=== PATIENT | female | born 1955 | race Caucasian/White ===

== ENCOUNTER 2019-02-27 16:52 | Emergency (ER) | payer BC ==
[2019-02-27] MEDS ORDERED: DIAZEPAM 2 MG TABLET ONE (17:12)
[2019-02-27 17:30] LABS: Absolute Lymphocytes (CBC) 1.1 K/uL (0.7-4.9); Basophils % 0.8 % (0-1.3); Hematocrit 38.4 % (36.0-45.0); Lymphocytes % 30.3 % (15.3-44.8); MPV 6.9 fL (7.6-11.3); RBC Red Blood Cell Count 3.88 M/uL (3.86-4.86)
[2019-02-27 17:48] LABS: BUN Blood Urea Nitrogen 14 mg/dL (7-18); Bicarbonate 31 mmol/L (21-32); Glucose Level 119 mg/dL (74-106); Potassium 4.1 mmol/L (3.5-5.1); Sodium Level 132 mmol/L (136-145); Troponin (Emerg Dept Use Only) < 0.02 ng/mL (0.0-0.045)
--- NOTE | 2019-02-27 18:04 | EDPHYS ---
Physician Documentation [facility] Name: Kristina Erickson Age: 63 yrs Sex: Female : 1955 Arrival Date: 02/27/2019 Time: 16:53 Bed 6 Private MD: ED Physician Julio César Tirado HPI: 02/27 17:09 This 63 yrs old Female presents to ER via Ambulatory with complaints of rn Anxiety, Elevated Heart Rate. 17:09 The patient presents with a history of heart racing. Context: The symptoms occur with rn anxiety. Onset: The symptoms/episode began/occurred 1 week(s) ago. Duration: The patient or guardian reports multiple episodes, that wax and wane. Modifying factors: The symptoms are aggravated by anxiety, The symptoms are alleviated by nothing. Severity of symptoms: At their worst the symptoms were moderate in the emergency department the symptoms are unchanged. The patient has experienced similar episodes in the past. The patient has not recently seen a physician. reports came with family from [place], here visiting at [place], reports a week prior to coming had increased anxiety, feels heart racing and anxious. No chest pain/sob/abd pain/vomiting/diarrhea. Reports feels like her anxiety just worse. No medication changes recently. . Historical: - Allergies: 16:58 No Known Allergies; la1 - PMHx: 16:58 Hypertension; Anxiety; la1 - Immunization history:: Adult Immunizations up to date. - Social history:: Smoking status: Patient/guardian denies using tobacco. - Ebola Screening: : No symptoms or risks identified at this time. - Family history:: not pertinent. - Hospitalizations: : No recent hospitalization is reported. ROS: 17:09 Constitutional: Negative for fever, chills, and weight loss, Eyes: Negative for injury, rn pain, redness, and discharge, Cardiovascular: Negative for chest pain, and edema, Respiratory: Negative for shortness of breath, cough, wheezing, and pleuritic chest pain, Abdomen/GI: Negative for abdominal pain, nausea, vomiting, diarrhea, and constipation, MS/Extremity: Negative for injury and deformity, Skin: Negative for injury, rash, and discoloration, Neuro: Negative for headache, weakness, numbness, tingling, and seizure, Psych: Negative for suicide ideation, homicidal ideation Exam: 17:09 Constitutional: This is a well developed, well nourished patient who is awake, alert, rn and in no acute distress.Ambulatory to room without difficulty or assistance. Head/Face: Normocephalic, atraumatic. ENT: MMM Cardiovascular: Regular rate and rhythm. No pulse deficits. Respiratory: Lungs have equal breath sounds bilaterally, clear to auscultation and percussion. No increased work of breathing, no retractions or nasal flaring. Abdomen/GI: soft, non-tender MS/ Extremity: Pulses equal, no cyanosis. Neurovascular intact. Full, normal range of motion. Equal circumference. Neuro: Awake and alert, GCS 15, oriented to person, place, time, and situation. Cranial nerves II-XII grossly intact. Motor strength 5/5 in all extremities. Sensory grossly intact. Cerebellar exam normal. Normal gait. 17:19 ECG was reviewed by the Attending Physician. rn Vital Signs: 16:58 BP 143 / 77; Pulse 86; Resp 16; Temp 97.4; Pulse Ox 100% on R/A; Weight 63.5 kg; Height la1 5 ft. 6 in. (167.64 cm); 17:49 BP 109 / 54; Pulse 70; Resp 18 S; Pulse Ox 100% on R/A; jl7 16:58 Body Mass Index 22.60 (63.50 kg, 167.64 cm) la1 MDM: 17:01 Patient medically screened. rn 18:02 Differential diagnosis: arrythmia, dehydration, stress disorder, anxiety. Data rn reviewed: vital signs, nurses notes, lab test result(s), EKG, and as a result, I will discharge patient. Counseling: I had a detailed discussion with the patient and/or guardian regarding: the historical points, exam findings, and any diagnostic results supporting the discharge/admit diagnosis, lab results, the need for outpatient follow up, to return to the emergency department if symptoms worsen or persist or if there are any questions or concerns that arise at home. Response to treatment: the patient's symptoms have markedly improved after treatment, and as a result, I will discharge patient. Special discussion: I discussed with the patient/guardian in detail that at this point there is no indication for admission to the hospital. It is understood, however, that if the symptoms persist or worsen the patient needs to return immediately for re-evaluation. Based on the history and exam findings, there is no indication for further emergent testing or inpatient evaluation. I discussed with the patient/guardian the need to see the psychiatrist for further evaluation of the symptoms. 02/27 17:08 Order name: CBC with Diff; Complete Time: 17:58 rn 02/27 17:08 Order name: Basic Metabolic Panel; Complete Time: 17:58 rn 02/27 17:08 Order name: TSH; Complete Time: 17:58 rn 02/27 17:08 Order name: T4 Free; Complete Time: 17:58 rn 02/27 17:08 Order name: Troponin (emerg Dept Use Only); Complete Time: 17:58 rn 02/27 17:08 Order name: IV Start; Complete Time: 17:14 rn 02/27 17:08 Order name: EKG; Complete Time: 17:09 rn 02/27 17:08 Order name: EKG - Nurse/Tech; Complete Time: 17:14 rn EC:19 Rate is 78 beats/min. Rhythm is regular. QRS Riner is Normal. CO interval is normal. QRS rn interval is normal. QT interval is normal. No Q waves. T waves are Normal. No ST changes noted. Clinical impression: NSR w/ Non-specific ST/T Changes. Interpreted by me. Reviewed by me. Administered Medications: 17:14 Drug: Valium 2 mg Route: PO; mg2 17:45 Follow up: Response: No adverse reaction; Marked relief of symptoms jl7 Disposition: 02/27/19 18:03 Discharged to Home. Impression: Anxiety disorder, unspecified. - Condition is Stable. - Discharge Instructions: Generalized Anxiety Disorder. - Prescriptions for Valium 2 mg Oral Tablet - take 1 tablet by ORAL route every 8-12 hours As needed; 5 tablet. - Medication Reconciliation Form, Thank You Letter, Antibiotic Education, Prescription Opioid Use form. - Follow up: Private Physician; When: As needed; Reason: Recheck today's complaints, Re-evaluation by your physician. - Problem is an ongoing problem. - Symptoms have improved. Signatures: Dispatcher [employer] EDMS Julio César Tirado MD MD rn Attema, Lee RN RN la1 Dieter Mcgovern RN RN jl7 Simone Keen RN RN mg2 Corrections: (The following items were deleted from the chart) 18:16 18:03 02/27/2019 18:03 Discharged to Home. Impression: Anxiety disorder, unspecified. jl7 Condition is Stable. Forms are Medication Reconciliation Form, Thank You Letter, Antibiotic Education, Prescription Opioid Use. Follow up: Private Physician; When: As needed; Reason: Recheck today's complaints, Re-evaluation by your physician. Problem is an ongoing problem. Symptoms have improved. rn
--- NOTE | 2019-02-27 18:04 | ER ---
Nurse's Notes [facility] Name: Kristina Erickson Age: 63 yrs Sex: Female : 1955 Arrival Date: 02/27/2019 Time: 16:53 Bed 6 Private MD: Diagnosis: Anxiety disorder, unspecified Presentation: 02/27 16:57 Presenting complaint: Patient states: for the last few days I have been real anxious. I la1 have a hx of anxiety and it feels like that but my doctor told me I needed to be seen. States going through some tough times in therapy. Transition of care: patient was not received from another setting of care. Onset of symptoms was February 27, 2019. Risk Assessment: Do you want to hurt yourself or someone else? Patient reports no desire to harm self or others. Initial Sepsis Screen: Does the patient meet any 2 criteria? No. Patient's initial sepsis screen is negative. Does the patient have a suspected source of infection? No. Patient's initial sepsis screen is negative. Care prior to arrival: None. 16:57 Method Of Arrival: Ambulatory la1 16:57 Acuity: RADHA 3 la1 Historical: - Allergies: 16:58 No Known Allergies; la1 - PMHx: 16:58 Hypertension; Anxiety; la1 - Immunization history:: Adult Immunizations up to date. - Social history:: Smoking status: Patient/guardian denies using tobacco. - Ebola Screening: : No symptoms or risks identified at this time. - Family history:: not pertinent. - Hospitalizations: : No recent hospitalization is reported. Screenin:15 Abuse screen: Denies threats or abuse. Denies injuries from another. Nutritional jl7 screening: No deficits noted. 17:16 Tuberculosis screening: No symptoms or risk factors identified. Fall Risk IV access (20 jl7 points). Assessment: 17:24 General: Appears in no apparent distress. comfortable, Behavior is calm, cooperative. mg2 Pain: Denies pain. Neuro: Level of Consciousness is awake, alert, obeys commands, Oriented to person, place, time, situation. Cardiovascular: Reports since chest discomfort Capillary refill < 3 seconds Patient's skin is warm and dry. Cardiovascular: Reports. Respiratory: Airway is patent Respiratory effort is even, unlabored, Respiratory pattern is regular, symmetrical. GI: No signs and/or symptoms were reported involving the gastrointestinal system. : No signs and/or symptoms were reported regarding the genitourinary system. EENT: No signs and/or symptoms were reported regarding the EENT system. Derm: Skin is intact, is healthy with good turgor, Skin is pink, warm \T\ dry. normal. Musculoskeletal: Circulation, motion, and sensation intact. Capillary refill < 3 seconds. Vital Signs: 16:58 BP 143 / 77; Pulse 86; Resp 16; Temp 97.4; Pulse Ox 100% on R/A; Weight 63.5 kg; Height la1 5 ft. 6 in. (167.64 cm); 17:49 BP 109 / 54; Pulse 70; Resp 18 S; Pulse Ox 100% on R/A; jl7 16:58 Body Mass Index 22.60 (63.50 kg, 167.64 cm) la1 ED Course: 16:53 Patient arrived in ED. as 16:58 Triage completed. la1 16:59 Arm band placed on right wrist. la1 17:00 Julio César Tirado MD is Attending Physician. rn 17:09 Dieter Mcgovern, PRACHI is Primary Nurse. jl7 17:16 Patient has correct armband on for positive identification. Bed in low position. Call jl7 light in reach. Side rails up X 1. Pulse ox on. NIBP on. 17:20 No provider procedures requiring assistance completed. Inserted saline lock: 20 gauge mg2 in right antecubital area, using aseptic technique. Blood collected. 17:23 Simone Keen, PRACHI is Primary Nurse. mg2 18:15 IV discontinued, intact, bleeding controlled, No redness/swelling at site. Pressure jl7 dressing applied. Administered Medications: 17:14 Drug: Valium 2 mg Route: PO; mg2 17:45 Follow up: Response: No adverse reaction; Marked relief of symptoms jl7 Outcome: 18:03 Discharge ordered by . rn 18:15 Discharged to home ambulatory. jl7 18:15 Condition: stable 18:15 Discharge instructions given to patient, family, Instructed on discharge instructions, follow up and referral plans. medication usage, Demonstrated understanding of instructions, follow-up care, medications. 18:16 Patient left the ED. jl7 Signatures: Reyna Leonardo Roman, MD MD rn Attema, Lee, RN RN la Dieter Mcgovern RN RN jl7 Gardose, Simone, RN RN mg2
[2019-02-27 18:39] VITALS: TEMP 97.4; O2SAT 100
[2019-02-27 18:40] VITALS: BP 109/54
--- NOTE | 2019-02-27 19:29 | EKG ---
Test Date: 2019-02-27 Test Time: 17:08:36 Hair Spring Cutter: CARO MEASUREMENT RESULTS: Intervals: Rate: 78 WV: 170 QRSD: 94 QT: 402 QTc: 458 Mallory: P: 70 WV: 170 QRS: 59 T: 94 INTERPRETIVE STATEMENTS: Normal sinus rhythm Possible Left atrial enlargement Nonspecific T wave abnormality Abnormal ECG No previous ECG available for comparison Electronically Signed On 02-27-19 19:29:10 CDT by Lino Del Castillo
== END 2019-02-27 18:16 | disposition home or self-care (01) ==
LOC: ER 16:52
DX: F41.9 Anxiety disorder, unspecified (principal)
CPT/HCPCS: 36415; 80048; 84439; 84443; 84484; 85025; 93005; 99284